=== PATIENT | male | born 1950 | race African-American/Black ===

== ENCOUNTER 2017-03-11 17:32 | Emergency (ER) | payer MEDICARE, MEDICAID ==
--- NOTE | 2017-03-11 18:58 | RAD ---
NECK FOR SOFT TISSUES HISTORY: Assess for swallowed foreign body. TECHNIQUE: Two views obtained. FINDINGS: The airway is patent. The epiglottis appears unremarkable. Density in the prevertebral region is seen at the thyroid cartilage and at the cricoid cartilage. A radiopaque foreign body could be obscured in this region, which would be at the level of the upper esophagus. Consider CT if there is concern for foreign body in this location. Degenerative changes in the cervical spine. IMPRESSION: No definite radiopaque foreign body, although density in the prevertebral region, at the level of th e larynx, is consistent with thyroid cartilage and cricothyroid cartilage, which could obscure a for eign body in the upper esophagus. POS: [facility]
--- NOTE | 2017-03-11 19:00 | RAD ---
TWO VIEW CHEST HISTORY: Questionably swallowed foreign body. FINDINGS: No radiopaque foreign body identified overlying the mediastinum. The lungs are clear. No evidence of pneumomediastinum or pneumothorax. IMPRESSION: Unremarkable chest. POS: [facility]
--- NOTE | 2017-03-11 19:12 | CT ---
CT CHEST WITHOUT CONTRAST 03/11/17 Multiple axial tomograms obtained through the chest without IV enhancement. HISTORY: Swallowed a pork chop bone. Fills like it is lodged in the esophagus. FINDINGS: The lung rain are clear. Heart is mildly enlarged. No evidence of pneumomediastinum. No evidence of fluid or edema within the mediastinum. The esophagu s appears unremarkable. No evidence of radiopaque foreign body seen within the esophagus. The upper abdomen appears unremarkable. IMPRESSION: Unremarkable CT chest. No evidence of esophageal foreign body. No evidence of pneumomediastinum or m ediastinitis. POS: [facility]
== END 2017-03-11 19:15 | disposition home or self-care (01) ==
LOC: MADERS 17:32
DX: T18.9XXA Foreign body of alimentary tract, part unspecified, initial encounter (principal); M19.90 Unspecified osteoarthritis, unspecified site; F17.220 Nicotine dependence, chewing tobacco, uncomplicated
CPT/HCPCS: 70360; 71020; 71250

== ENCOUNTER 2017-05-13 21:15 | Emergency (ER) | payer MEDICARE, MEDICAID ==
[2017-05-13] MEDS ORDERED: Cephalexin 500 MG CAP ONE (21:50)
[2017-05-13] MEDS ORDERED: Sulfameth/Trimethoprim DS 800-160mg TAB ONE (21:50)
[2017-05-13] MEDS ORDERED: Naproxen 500 MG TAB ONE (21:50)
== END 2017-05-13 21:55 | disposition home or self-care (01) ==
LOC: MADERS 21:15
DX: L03.114 Cellulitis of left upper limb (principal); M19.90 Unspecified osteoarthritis, unspecified site; F17.220 Nicotine dependence, chewing tobacco, uncomplicated; Z79.899 Other long term (current) drug therapy
CPT/HCPCS: 99282

== ENCOUNTER 2018-03-04 09:04 | Emergency (ER) | payer MEDICAID, MEDICARE ==
--- NOTE | 2018-03-04 10:31 | RAD ---
LUMBAR SPINE THREE VIEWS: 03/04/2018 HISTORY: Point tenderness at L4-L5 and L5-S1, following a fall. COMPARISON: None. FINDINGS: Five lumbar type vertebral bodies are present. The pedicles appear intact on frontal imaging. There is disk space narrowing at L4-L5 and at L5-S1 with degenerative endplate change and anterior os teophyte formation. At the L4-L5 level, there is 6 mm of anterolisthesis. At L3-L4, L4-L5, and L5-S1, there is anterolis thesis. There is facet hypertrophy bilaterally at L3-L4, L4-L5, and L5-S1. No acute fracture or marialuisa dence of dislocation. IMPRESSION: Multilevel lower lumbar spine facet hypertrophy with anterolisthesis of L4 on L5, measuring 6 mm. No acute osseous abnormality. POS: [facility]
== END 2018-03-04 10:00 | disposition home or self-care (01) ==
LOC: MADERS 09:04
DX: M47.816 Spondylosis without myelopathy or radiculopathy, lumbar region (principal); I10 Essential (primary) hypertension; F17.220 Nicotine dependence, chewing tobacco, uncomplicated; Z79.899 Other long term (current) drug therapy
CPT/HCPCS: 72100

== ENCOUNTER 2018-08-08 21:45 | Emergency (ER) | payer MEDICARE | END 2018-08-08 22:12 | disposition home or self-care (01) | LOC: MADERS 21:45 | DX: K59.00 Constipation, unspecified (principal); F17.220 Nicotine dependence, chewing tobacco, uncomplicated; Z79.899 Other long term (current) drug therapy | CPT/HCPCS: 99281 ==

== ENCOUNTER 2018-08-09 08:40 | Emergency (ER) | payer MEDICARE, MEDICAID ==
[2018-08-09] MEDS ORDERED: Bisacodyl 10 MG SUPP ONE (09:23)
== END 2018-08-09 09:32 | disposition home or self-care (01) ==
LOC: MADERS 08:40
DX: K59.00 Constipation, unspecified (principal); F17.220 Nicotine dependence, chewing tobacco, uncomplicated; Z79.899 Other long term (current) drug therapy
CPT/HCPCS: 99283

== ENCOUNTER 2023-03-22 02:48 | Emergency (ER) | payer OTHER, MEDICAID | END 2023-03-22 03:25 | disposition home or self-care (01) | LOC: MADERS 02:48 | DX: R04.0 Epistaxis (principal); R03.0 Elevated blood-pressure reading, without diagnosis of hypertension; F17.220 Nicotine dependence, chewing tobacco, uncomplicated | CPT/HCPCS: 99283 ==

== ENCOUNTER 2023-04-07 17:48 | Emergency (ER) | payer OTHER, MEDICAID ==
[2023-04-07 20:49] LABS: #Basophils 0.1 thou/uL (0.0-0.2); #Eosinphils 0.1 thou/uL (0.0-0.7); #Lymphocytes 1.7 thou/uL (1.20-3.40); #Monocytes 0.6 thou/uL (0.11-0.59); %Basophils 1.4 % (0.0-1.0); %Eosinophils 2.8 % (0.0-10.0); %Lymphocytes 37.6 % (21.0-51.0); %Monocytes 13.5 % (0.0-10.0); %Neutrophils 44.7 % (42.0-75.0); Hematocrit 47.6 % (42.0-52.0); Hemoglobin 14.7 g/dL (14.0-18.0); Mean Corpuscular HGB CONC 30.9 g/dL (32.0-36.0); Mean Corpuscular Hemoglobin 28.1 pg (27.0-31.0); Mean Corpuscular Volume 90.9 fl (78.0-98.0); Mean Platelet Volume 9.7 fL (7.4-10.4); Platelet Count 178 10x3/uL (130-400); RBC Distribution Width 14.8 % (11.5-14.5); Red Blood Cell (RBC) Count 5.23 mill/uL (4.70-6.10); White Blood Cell (WBC) Count 4.5 10x3/uL (4.8-10.8)
[2023-04-07 20:51] LABS: Bilirubin Negative (Negative); Blood, Urine Negative (Negative); Clarity Clear (Clear); Glucose, Urine (Dipstick) Negative (Negative); Ketone, Urine Negative (Negative); Leukocyte Negative (Negative); Nitrite Negative (Negative); Protein, Urine (Dipstick) Negative (Neg-Trace); Urobilinogen 0.2 mg/dL (Less than 2)
[2023-04-07 20:54] LABS: CAUTI Indications for Culture Alt mental st,lethar; RBC/HPF None Seen HPF (0-3); Squamous Epithelial 0-3 HPF (0-3); WBC/HPF None Seen HPF (0-3)
[2023-04-07 20:55] LABS: Urine Culture Reflex No No
[2023-04-07 21:08] LABS: ALT (SGPT) 17 U/L (8-55); AST (SGOT) 20 U/L (5-34); Albumin 4.2 g/dL (3.4-4.8); Alkaline Phosphatase 77 U/L (40-110); Anion Gap 14 mmol/L (10-20); BUN (Urea Nitrogen) 9 mg/dL (8.4-25.7); Bilirubin, Total 0.3 mg/dL (0.2-1.2); Calc. Creatinine Clearance 0 mL/min (70-130); Calcium 10.2 mg/dL (7.8-10.44); Carbon Dioxide 25 mmol/L (23-31); Chloride 105 mmol/L (98-107); Estimated GFR 73; Globulin 3.7 g/dL (2.4-3.5); Glucose 97 mg/dL (83-110); Potassium 4.4 mmol/L (3.5-5.1); Protein, Total 7.9 g/dL (5.8-8.1); Sodium 140 mmol/L (136-145)
== END 2023-04-07 21:40 | disposition home or self-care (01) ==
LOC: MADERS 17:48
DX: I10 Essential (primary) hypertension (principal); F17.220 Nicotine dependence, chewing tobacco, uncomplicated
CPT/HCPCS: 36415; 80053; 81001; 85025; 94760

== ENCOUNTER 2025-03-30 15:30 | Emergency (ER) | payer OTHER, MEDICAID | END 2025-03-30 16:05 | disposition home or self-care (01) | LOC: MADERS 15:30 | DX: S60.453A Superficial foreign body of left middle finger, initial encounter (principal); I10 Essential (primary) hypertension; F17.220 Nicotine dependence, chewing tobacco, uncomplicated; Z79.899 Other long term (current) drug therapy; W45.8XXA Other foreign body or object entering through skin, initial encounter; Y93.89 Activity, other specified; Y99.0 Civilian activity done for income or pay | CPT/HCPCS: 99283 ==